=== PATIENT | female | born 1990 | race Hispanic/Latino ===

== ENCOUNTER 2018-01-07 15:00 | Emergency (ER) | payer MEDICAID, OTHER ==
[2018-01-07 15:40] LABS: BASOPHILS % (AUTO) 0.5 % (0.0-5.0); LYMPHOCYTES % (AUTO) 22.6 % (21.0-51.0); MEAN CORPUSCULAR HEMOGLOBIN 29.2 pg (27.0-33.0); MEAN CORPUSCULAR HGB CONC 33.5 g/dL (32.0-36.0); MEAN CORPUSCULAR VOLUME 87.2 fL (79-99); MONOCYTES % (AUTO) 9.2 % (3.0-13.0); NEUTROPHILS % (AUTO) 66.7 % (40.0-77.0); PLATELET COUNT (AUTO) 279 K/uL (130-400); RED BLOOD CELL COUNT(AUTO) 4.36 MIL/uL (4.00-5.50); RED CELL DISTRIBUTION WIDTH 14.8 % (11.0-15.5); WHITE BLOOD COUNT (AUTO) 4.9 K/uL (4.8-10.8)
[2018-01-07 15:47] LABS: APPEARANCE,URINE Clear (CLEAR); BILIRUBIN,URINE Negative (NEGATIVE); COLOR,URINE Yellow (YELLOW); GLUCOSE, URINE (UA) Negative (NEGATIVE); KETONES,URINE Trace mg/dL (NEGATIVE); LEUKOCYTE ESTERASE ,URINE Negative (NEGATIVE); NITRATE,URINE Negative (NEGATIVE); OCCULT BLOOD,URINE Trace (NEGATIVE); PH,URINE 6.5 (5.0-8.0); PROTEIN,URINE Negative (NEGATIVE)
[2018-01-07 15:52] LABS: CREATININE 0.6 mg/dL (0.5-1.5); POTASSIUM 3.8 mmol/L (3.5-5.1)
[2018-01-07 16:17] LABS: ALBUMIN 3.3 g/dL (3.5-5.0); BILIRUBIN,TOTAL 0.1 mg/dL (0.2-1.0); TOTAL PROTEIN, SERUM 7.6 g/dL (6.0-8.3)
[2018-01-07 16:27] LABS: BACTERIA,URINE Rare /HPF (None Seen); SQUAMOUS EPITHELIAL CELL,UR Rare /HPF (0-2); WBC,URINE 0-1 /HPF (0-1)
[2018-01-07] MEDS ORDERED: ACETAMINOPHEN 325 MG TAB ONE (17:26)
== END 2018-01-07 17:35 | disposition home or self-care (01) ==
LOC: EDH 15:00
DX: O26.891 Other specified pregnancy related conditions, first trimester (principal); R10.84 Generalized abdominal pain; Z3A.11 11 weeks gestation of pregnancy
CPT/HCPCS: 36415; 76801; 80053; 81001; 84702; 85025; 86900; 86901

== ENCOUNTER 2018-05-14 09:58 | Observation (INO) | payer MEDICAID | END 2018-05-14 12:32 | disposition home or self-care (01) | LOC: LDH 09:58 | PROVIDERS: ADMIT Obstetrics & Gynecology; ATTEND Obstetrics & Gynecology | DX: O99.513 Diseases of the respiratory system complicating pregnancy, third trimester (principal); R07.9 Chest pain, unspecified; R06.02 Shortness of breath; O99.343 Other mental disorders complicating pregnancy, third trimester; F41.9 Anxiety disorder, unspecified; Z3A.33 33 weeks gestation of pregnancy | CPT/HCPCS: G0378 ×4 ==

== ENCOUNTER 2022-06-29 13:47 | Emergency (ER) | payer MEDICAID, OTHER ==
[~2022-06-29] VITALS: Ht 162.6 cm; Wt 122.5 kg
[2022-06-29 15:18] LABS: BASOPHILS % (AUTO) 0.1 % (0.0-5.0); EOSINOPHILS % (AUTO) 0.2 % (0.0-8.0); HEMATOCRIT 39.9 % (36-48); MEAN CORPUSCULAR HEMOGLOBIN 27.8 pg (27.0-33.0); MEAN CORPUSCULAR HGB CONC 33.1 g/dL (32.0-36.0); MONOCYTES % (AUTO) 4.3 % (3.0-13.0); NEUTROPHILS % (AUTO) 85.1 % (40.0-77.0); PLATELET COUNT (AUTO) 424 K/uL (130-400); RED BLOOD CELL COUNT(AUTO) 4.75 MIL/uL (4.00-5.50); RED CELL DISTRIBUTION WIDTH 14.6 % (11.0-15.5); WHITE BLOOD COUNT (AUTO) 12.8 K/uL (4.8-10.8)
[2022-06-29 15:26] LABS: CARBON DIOXIDE 25 mmol/L (21-32); CHLORIDE 99 mmol/L (101-111); CREATININE 0.6 mg/dL (0.5-1.5); GLOMERULAR FILTR. RATE CALC 122 mL/min (>90); GLUCOSE,RANDOM 116 mg/dL (70-105); POTASSIUM 5.4 mmol/L (3.5-5.1); SODIUM SERUM 133 mmol/L (136-145); UREA NITROGEN, BLOOD 12 mg/dL (7-18)
[2022-06-29 15:26] LABS: APPEARANCE,URINE CLEAR (CLEAR); BILIRUBIN,URINE NEGATIVE (NEGATIVE); COLOR,URINE YELLOW (YELLOW); GLUCOSE, URINE (UA) NEGATIVE (NEGATIVE); KETONES,URINE NEGATIVE (NEGATIVE); LEUKOCYTE ESTERASE ,URINE NEGATIVE Leu/uL (NEGATIVE); NITRATE,URINE NEGATIVE (NEGATIVE); PROTEIN,URINE 20 mg/dL (NEGATIVE)
[2022-06-29 15:30] LABS: ALANINE AMINOTRANSFERASE 164 U/L (12-78); ALBUMIN 3.8 g/dL (3.5-5.0); ASPARTATE AMINOTRANSFERASE 273 U/L (10-37); TOTAL PROTEIN, SERUM 8.2 g/dL (6.0-8.3)
[2022-06-29 15:31] LABS: LIPASE < 50 U/L (114-286)
[2022-06-29 15:36] LABS: HCG,QUALITATIVE URINE POSITIVE (NEGATIVE)
[2022-06-29 15:43] LABS: BACTERIA,URINE RARE /HPF (None Seen); MUCUS,URINE RARE LPF (None Seen); SQUAMOUS EPITHELIAL CELL,UR FEW /HPF (0-2); YEAST,URINE BUDDING RARE /HPF (None Seen)
[2022-06-29] MEDS ORDERED: MORPHINE 2 MG SYG ONE ×2 (16:28→17:47)
[2022-06-29] MEDS ORDERED: MORPHINE 2 MG SYG IVP ONE ×2 (16:30→17:30)
[2022-06-29] MEDS ORDERED: KETOROLAC 30MG VIAL (30MG/ML) IM ONE (16:30)
[2022-06-29] MEDS ORDERED: ONDANSETRON 4MG INJ ONE (16:39)
[2022-06-29] MEDS ORDERED: ONDANSETRON 4MG INJ IVP ONE (17:00)
[2022-06-29] MEDS ORDERED: MORPHINE 4 MG SYG IM ONE (20:30)
[2022-06-29] MEDS ORDERED: MORPHINE 4 MG SYG ONE (20:55)
[2022-06-29 21:32] VITALS: BP 128/70
== END 2022-06-29 21:42 | disposition home or self-care (01) ==
LOC: EDH 13:47
DX: K82.9 Disease of gallbladder, unspecified (principal)
CPT/HCPCS: 99285; 74176; 96374; 76705; 96375; 80053; 84702; 83690; 85025; 87088; 81001; 81025; 36415; 76817; 96376; 96372; J2405; J2270

== ENCOUNTER 2024-10-03 20:28 | Emergency (ER) | payer MEDICAID, OTHER ==
[~2024-10-03] VITALS: Ht 162.6 cm; Wt 113.4 kg
[~2024-10-03 20:28] MED LIST: IBUP-2070 PO; TRAM-543 PO
--- NOTE | 2024-10-03 20:32 | NUR ---
UA CUP PROVIDED
--- NOTE | 2024-10-03 20:32 | NUR ---
REPORT TO SCARLETT VIDES ON NEED FOR ROOM
--- NOTE | 2024-10-03 20:38 | ERN ---
ED Note History of Present Illness Stated Complaint: VAGINAL BLEEDING Chief Complaint: Vaginal Bleeding Time Seen by MD: 20:32 Dictation: PATIENT IS A 34-YEAR-OLD FEMALE COMING IN TODAY WITH VAGINAL BLEEDING SPOTTING ONSET 2-3 DAYS PRIOR TO ARRIVAL. NO CONTRACTIONS NO BACK PAIN. SHE STATES SHE WAS IN [place] LAST WEEK AND WAS HAD BLOOD DRAWN AND WAS TOLD SHE WAS THERE. , NO CARE. SHE IS APPROXIMATELY SIX WEEKS BY WHEEL. SHE STATES SHE HAS TAKEN [id number] VITAMINS. Allergies: Coded Allergies: No Known Allergies (Unverified Allergy, Unknown, 06/29/22) Home Meds Active Scripts Tramadol HCl/Acetaminophen (Tramadol-Acetaminophn 37.5-325) 37.5 Mg-325 Mg Tablet, 1 EACH PO q 12 hours, #12 TAB 0 Refills Prov:GLADYS AMADOR NP 01/10/23 Ibuprofen (Ibuprofen) 600 Mg Tablet, 600 MG PO Q6H PRN for PAIN, #15 TAB 0 Refills Prov:GLADYS AMADOR NP 01/10/23 Past Medical History Past Medical History: No Pertinent History Surgical History: Cholecystectomy, Social History: Lives with family LMP: Aug 17, 2024 : 4 Para: 3 Aborts: 0 RN Note Reviewed/Agreed w/PFSH: Yes Review of System Dictation CONSTITUTIONAL: NEGATIVE EXCEPT FOR HPI HEAD/FACE: NEGATIVE EXCEPT FOR HPI EENT: NEGATIVE EXCEPT FOR HPI RESPIRATORY: NEGATIVE EXCEPT FOR HPI GASTROINTESTINAL/ABDOMINAL: NEGATIVE EXCEPT FOR HPI GENITOURINARY: NEGATIVE EXCEPT FOR HPI VAGINAL BLEEDING/SPOTTING MUSCULOSKELETAL: NEGATIVE EXCEPT FOR HPI INTEGUMENTARY: NEGATIVE EXCEPT FOR HPI NEUROLOGICAL/PSYCH: NEGATIVE EXCEPT FOR HPI HEMATOLOGIC/LYMPHATIC: NEGATIVE EXCEPT FOR HPI ALL SYSTEMS NEGATIVE, EXCEPT NOTED ABOVE. 13 POINT REVIEW OF SYSTEMS ASSESSED AND ALL NEGATIVE EXCEPT FOR ABOVE. Initial Vital Sign VS Vital Signs Date Time Temp Pulse Resp B/P (MAP) Pulse Ox O2 Delivery O2 Flow Rate FiO2 10/03/24 20:29 99.0 61 20 154/94 100 Room Air Physical Exam Dictation VITAL SIGNS REVIEWED GENERAL APPEARANCE: ALERT, ORIENTED X 3, MILD ACUTE DISTRESS, WELL DEVELOPED, NOURISHED. HEAD AND FACE: NON-TRAUMATIC. EYES: PERRL, PINK CONJUNCTIVAS, EYELID NO TRAUMA, ANTERIOR CHAMBER WITH ARCUS SENILIS. EARS: PINNAS INTACT AND NO SIGNS OF TRAUMA OR ERYTHEMA EAR CANALS CLEAR AND NO DISCHARGE TM NO ERYTHEMA NOSE: NO DISCHARGE, NO BLEEDING. OROPHARYNX: MOUTH NORMAL, TONGUE PINK, PHARYNX CLEAR,NO ERYTHEMA, TONSILS NO EXUDATES, NO ABSCESSES NOTED, MUCOUS MEMBRANE MOIST NECK: SUPPLE, NON-TENDER, NO THYROMEGALY, NO MASSES, NO JVD, NO BRUITS BREAST:DEFERRED CHEST:NO TENDERNESS, NO CREPITUS, NO PARADOXICAL MOVEMENT, NO RETRACTIONS LUNGS:CLEAR, WELL-VENTILATED, SYMMETRIC, NO RALES, NO WHEEZING, NO RHONCHI, NO STRIDOR, GOOD BREATH SOUNDS BILATERALLY HEART: REGULAR RATE, REGULAR RHYTHM, NO MURMUR, NO GALLOPS VASCULAR: NO PERIPHERAL EDEMA, ABDOMEN: SOFT, POSITIVE BOWEL SOUNDS, NONDISTENDED, NO GUARDING, NONTENDER, NO REBOUND, NO MASSES NO HEPATOMEGALY, NO SPLENOMEGALY, NO DODGE'S SIGN, NO HERNIAS. RECTAL: DEFERRED GENITAL: DEFERRED NEUROLOGICAL: NORMAL SPEECH, MOTOR FUNCTION INTACT, SENSORY FUNCTION INTACT MUSCULOSKELETAL: NECK NONTENDER, FULL RANGE OF MOTION, BACK NONTENDER, FULL RANGE OF MOTION, EXTREMITIES: NONTENDER, FULL RANGE OF MOTION SKIN: COLOR PINK, DRY, NO TURGOR, NO RASH, NO LACERATIONS, NO ABRASIONS, NO CONTUSIONS. LYMPHATIC: DEFERRED Results (Laboratory/Radiology) Laboratory/Radiology Laboratory Tests Test 10/03/24 20:40 White Blood Count 11.6 K/uL (4.8-10.8) H Red Blood Count 4.21 MIL/uL (4.00-5.50) Hemoglobin 12.3 g/dL (12.0-16.0) Hematocrit 36.3 % (36-48) Mean Corpuscular Volume 86.2 fL (79-99) Mean Corpuscular Hemoglobin 29.2 pg (27.0-33.0) Mean Corpuscular Hemoglobin Concent 33.9 g/dL (32.0-36.0) Red Cell Distribution Width 14.2 % (11.0-15.5) Platelet Count 356 K/uL (130-400) Mean Platelet Volume 10.2 fL (7.5-10.5) Immature Granulocyte % (Auto) 0.3 % (0-1) Neutrophils (%) (Auto) 64.4 % (40.0-77.0) Lymphocytes (%) (Auto) 26.0 % (21.0-51.0) Monocytes (%) (Auto) 6.9 % (3.0-13.0) Eosinophils (%) (Auto) 2.1 % (0.0-8.0) Basophils (%) (Auto) 0.3 % (0.0-5.0) Neutrophils # (Auto) 7.4 K/uL (1.8-7.7) Lymphocytes # (Auto) 3.0 K/uL (1.0-4.8) Monocytes # (Auto) 0.8 K/uL (0.1-1.0) Eosinophils # (Auto) 0.24 K/uL (0.00-0.70) Basophils # (Auto) 0.03 K/uL (0.00-0.20) Absolute Immature Granulocyte (auto 0.04 K/uL (0-1) Nucleated Red Blood Cells 0.0 % (0.0-0.19) Sodium Level 139 mmol/L (136-145) Potassium Level 3.5 mmol/L (3.5-5.1) Chloride Level 103 mmol/L (101-111) Carbon Dioxide Level 27 mmol/L (21-32) Blood Urea Nitrogen 9 mg/dL (7-18) Creatinine 0.5 mg/dL (0.5-1.0) Glomerular Filtration Rate Calc 126 mL/min (>90) Random Glucose 101 mg/dL (70-105) Total Calcium 9.7 mg/dL (8.5-10.1) Human Chorionic Gonadotropin, Quant 66363 mIU/mL (0-5) H 2140/ULTRASOUND DEMONSTRATES NO IUP. PATIENT HAS A PROBABLE DIVERTICULUM Labs Reviewed?: Yes ED Course ED Course Orders Procedure Category Date Status Time Cbc With Differential LAB 10/03/24 Complete 20:30 Basic Metabolic Panel LAB 10/03/24 Complete 20:30 Hcg,Quantitative LAB 10/03/24 Complete 20:36 Us Ob <14 Weeks US 10/03/24 Resulted 20:36 Type And Screen BBK 10/03/24 Complete 20:36 Acetaminophen 500mg PHA 10/03/24 Complete Tab (Tylenol 500mg T 21:00 Current Medications Medications (Trade) Dose Ordered Sig/Olesya Route PRN Reason Start Time Stop Time Status Last Admin Dose Admin Acetaminophen (TYLenol 500MG TAB) 1,000 mg ONCE ONCE PO 10/03/24 21:00 10/03/24 21:01 DC Vital Signs Date Time Temp Pulse Resp B/P (MAP) Pulse Ox O2 Delivery O2 Flow Rate FiO2 10/03/24 20:29 99.0 61 20 154/94 100 Room Air 2200/SPOKE WITH PATIENT AT LENGTH REGARDING CLINICAL FINDINGS INCLUDING UL TRASOUND REPORT. SHE IS AWARE THAT THERE IS NO [place] [address] HCG. ADDITIONALLY SHE IS AWARE SHE HAS A SCAR DEFECT AND WE WILL NEED TO FOLLOW UP WITH THE INTERNET MARKETER. SHE STATES SHE WILL CALL DR. SARAH HEATON IN THE NEXT TWO DAYS FOR FOLLOW UP AND MANAGE Medical Decision Making MDM MEDICAL DISCHARGE MAKING BASED ON BASIC LABS FOR BLEEDING IN WITH THE ULTRASOUND. PATIENT HAS ELEVATED QUANTITATIVE LEVEL WITHOUT DEMONSTRATED IUP. SHE DOES HAVE A DIVERTICULUM THIS WAS DISCUSSED WITH HER AND HER MOTHER AT LENGTH AND SHE WILL FOLLOW UP WITH HER INTERNET MARKETER DOCTOR IN THE NEXT 2-3 DAYS. DX & DISP Disposition: Discharge Departure Impression: Primary Impression: Blighted ovum Additional Impression: Complication of section wound Condition: Stable Additional Instructions: FOLLOW-UP WITH PRIMARY CARE PROVIDER IN 1 TO 2 DAYS. TAKE MEDICATIONS DIRECTED HERE IN THE EMERGENCY ROOM. OKAY TO CONTINUE HOME MEDICATIONS UNLESS OTHERWISE DISCUSSED DURING YOUR VISIT IN THE EMERGENCY ROOM TODAY. RETURN TO YOUR NEAREST EMERGENCY ROOM IF SYMPTOMS WORSEN OR IF THERE IS NO IMPROVEMENT. CALL 911 IF YOU NEED IMMEDIATE ASSISTANCE. TAKE TYLENOL OR MOTRIN [id number] NEEDED AND IF NO CONTRAINDICATIONS ARE PRESENT. INCREASE ORAL HYDRATION. A WOUND CULTURE OR URINE CULTURE WAS ORDERED HERE IN THE EMERGENCY ROOM DEPARTMENT PLEASE FOLLOW-UP WITH PRIMARY CARE PROVIDER AND ADVISE THEM TO GET REPEAT PORTS FROM OUR FACILITY. IF YOU HAD ANY BRANDEN WRAP/SPLINTS THAT WERE APPLIED HERE, PLEASE DO NOT REMOVE THEM UNTIL YOU SEE YOUR PRIMARY CARE OR SPECIALTY. CONTINUE VITAMINS UNTIL CLEARED BY YOUR INTERNET MARKETER DOCTOR. FOLLOW UP WITH HIM ON SUNDAY WITHOUT FAIL FOR MANAGEMENT. ULTRASOUND REPORT DEMONSTRATES SCAR DIVERTICULUM Referrals: SELF,REFERRAL (PCP) Time of Disposition: 22:04 I have reviewed the case, and I agree with, Diagnosis and Plan INA BLANKENSHIP NP Oct 03, 2024 20:38
[2024-10-03 20:51] LABS: BASOPHILS # (AUTO) 0.03 K/uL (0.00-0.20); BASOPHILS % (AUTO) 0.3 % (0.0-5.0); EOSINOPHILS # (AUTO) 0.24 K/uL (0.00-0.70); EOSINOPHILS % (AUTO) 2.1 % (0.0-8.0); HEMATOCRIT 36.3 % (36-48); IMMATURE GRANULOCYTE ABSOLUTE 0.04 K/uL (0-1); MEAN CORPUSCULAR HEMOGLOBIN 29.2 pg (27.0-33.0); MEAN CORPUSCULAR HGB CONC 33.9 g/dL (32.0-36.0); MEAN CORPUSCULAR VOLUME 86.2 fL (79-99); MONOCYTES # (AUTO) 0.8 K/uL (0.1-1.0); MONOCYTES % (AUTO) 6.9 % (3.0-13.0); NEUTROPHILS # (AUTO) 7.4 K/uL (1.8-7.7); NEUTROPHILS % (AUTO) 64.4 % (40.0-77.0); PLATELET COUNT (AUTO) 356 K/uL (130-400); RED BLOOD CELL COUNT(AUTO) 4.21 MIL/uL (4.00-5.50); RED CELL DISTRIBUTION WIDTH 14.2 % (11.0-15.5); WHITE BLOOD COUNT (AUTO) 11.6 K/uL (4.8-10.8)
[2024-10-03 20:58] LABS: CREATININE 0.5 mg/dL (0.5-1.0); POTASSIUM 3.5 mmol/L (3.5-5.1)
--- NOTE | 2024-10-03 21:39 | HMCIMG ---
US OB <14 WEEKS HISTORY: Vaginal bleeding COMPARISON: None TECHNIQUE: Obstetrical ultrasound study was performed. FINDINGS: The uterus measures 9.6 x 5.4 x 5.3 centimeter. Right ovary measures 2.3 x 2.7 x 2.2 centimeter. Left ovary measures 2.1 x 1.5 ( centimeter. No evidence of intrauterine gestational sac is seen. In a patient with positive test, differential diagnosis would include early versus ectopic versus missed . Beta-hCG correlation is recommended. There appears to be cystlike structure noted in the lower uterine segment measuring 1.4 x 2.4 x 2.4 cm may be related to small diverticula versus postop defect. Clinical correlation is recommended. No fluid is seen in the cul-de-sac. IMPRESSION: 1. No evidence of intrauterine gestational sac is seen. In a patient with positive test, differential diagnosis would include early versus ectopic versus missed . Beta-hCG correlation is recommended. There appears to be cystlike structure noted in the lower uterine segment measuring 1.4 x 2.4 x 2.4 cm may be related to small diverticula versus postop defect. Clinical correlation is recommended.
[2024-10-03 22:21] VITALS: BP 134/81; PULSE 71; RESP 19; TEMP 98.9; O2SAT 99
[2024-10-03] MEDS: acetaMINOPHEN 500 MG TABLET PO ONE (22:27)
== END 2024-10-03 22:33 | disposition home or self-care (01) ==
LOC: EDH 20:28
DX: O02.0 Blighted ovum and nonhydatidiform mole (principal); O08.9 Unspecified complication following an ectopic and molar pregnancy; O34.219 Maternal care for unspecified type scar from previous cesarean delivery; Z3A.01 Less than 8 weeks gestation of pregnancy; Z90.49 Acquired absence of other specified parts of digestive tract
CPT/HCPCS: 36415; 76801; 80048; 84702; 85025; 86850; 86900; 86901; 99284